=== PATIENT | male | born 2000 | race Two or more races ===

== ENCOUNTER 2024-09-21 14:22 | Emergency (ER) | payer OTHER ==
[~2024-09-21] VITALS: Ht 172.7 cm; Wt 60.3 kg
[2024-09-21 15:25] LABS: APPEARANCE,URINE CLEAR (CLEAR); BILIRUBIN,URINE NEGATIVE (NEGATIVE); BLOOD, URINE NEGATIVE Ery/uL (NEGATIVE); COLOR,URINE YELLOW (YELLOW); KETONES,URINE NEGATIVE (NEGATIVE); LEUKOCYTE ESTERASE ,URINE NEGATIVE (NEGATIVE); NITRITE, URINE NEGATIVE (NEGATIVE); PROTEIN,URINE NEGATIVE (NEGATIVE); UGLUCOSE NEGATIVE (NEGATIVE); UROBILINOGEN,URINE 0.2 EU/dL (0.2)
[2024-09-21] MEDS ORDERED: LEVO500T90 PO (15:47)
[2024-09-21] MEDS ORDERED: CEFTRIAXONE 500 MG VIAL ONE (16:05)
[2024-09-21] MEDS ORDERED: LIDOCAINE 1% INJ 50 ML MDV IJ ONE (16:06)
[2024-09-21] MEDS: CEFTRIAXONE 500 MG VIAL IM ONE (16:16)
[2024-09-21 16:20] VITALS: BP 125/82; TEMP 98.1; O2SAT 99
== END 2024-09-21 16:20 | disposition home or self-care (01) ==
LOC: ER 14:56
DX: N45.1 Epididymitis (principal); R30.0 Dysuria
CPT/HCPCS: 99284; 76870; 81003; J3490; J0696

== ENCOUNTER 2024-09-27 22:17 | Emergency (ER) | payer OTHER ==
[~2024-09-27] VITALS: Ht 175.3 cm; Wt 54.4 kg
[~2024-09-27 22:17] MED LIST: LEVO500T90 PO
[2024-09-27] MEDS ORDERED: FLUC200T8 PO (23:25)
[2024-09-28] MEDS ORDERED: KETOROLAC TROMETHAMINE INJ 30 MG/ML VIAL ONE (00:20)
[2024-09-28] MEDS: KETOROLAC TROMETHAMINE INJ 30 MG/ML VIAL IM ONE (00:31)
[2024-09-28 00:38] VITALS: BP 116/65; TEMP 99.5; O2SAT 96
== END 2024-09-28 00:44 | disposition home or self-care (01) ==
LOC: ER 22:26
DX: R07.0 Pain in throat (principal); B37.0 Candidal stomatitis
CPT/HCPCS: 99283; 87070; 87880; 96372; J1885; 86403-TC

== ENCOUNTER 2024-11-30 20:27 | Inpatient (IN) | payer OTHER ==
[~2024-11-30] VITALS: Ht 167.6 cm; Wt 58.7 kg
[~2024-11-30 20:27] MED LIST changes: +FLUC200T8 PO
[2024-11-30 22:58] LABS: PLATELET COUNT (AUTO) 514 K/uL (150-450); RED BLOOD CELL COUNT(AUTO) 3.97 MIL/uL (4.5-6.0); RED CELL DISTRIBUTION WIDTH 15.9 % (11.5-15.0); WHITE BLOOD COUNT (AUTO) 10.0 K/uL (4.3-11.0)
[2024-11-30 23:13] LABS: CALCIUM, SERUM 9.4 mg/dL (8.5-10.1); CREATININE 0.9 mg/dL (0.6-1.3); INR 1.08 (0.91-1.10); SODIUM SERUM 135.0 mmol/L (136-145); UREA NITROGEN, BLOOD 7.0 mg/dL (7-18)
[2024-12-01] MEDS ORDERED: ACETAMINOPHEN 325 MG TABLET PO PRN
[2024-12-01] MEDS: POTASSIUM CHLORIDE 20 MEQ TAB.PRT.SR PO ONE
[2024-12-01] MEDS ORDERED: ONDANSETRON HCL/PF 4 MG/2 ML VIAL IVP PRN
[2024-12-01] MEDS ORDERED: MAG HYDROX/AL HYDROX/SIMETH 30 ML UDC PO PRN
[2024-12-01] MEDS ORDERED: MAGNESIUM HYDROXIDE 30 ML UDC PO PRN
[2024-12-01] MEDS ORDERED: ENOXAPARIN SODIUM 60 MG/0.6 ML DISP.SYRIN SQ ONE (01:03)
[2024-12-01] MEDS ORDERED: POTASSIUM CHLORIDE 20 MEQ TAB.PRT.SR PO ONE (01:03)
[2024-12-01] MEDS: ENOXAPARIN SODIUM 60 MG/0.6 ML DISP.SYRIN SQ SCH (01:04)
[2024-12-01 06:04] VITALS: TEMP 98.1
[2024-12-01 06:34] LABS: PLATELET COUNT (AUTO) 526 K/uL (150-450); RED BLOOD CELL COUNT(AUTO) 3.92 MIL/uL (4.5-6.0); RED CELL DISTRIBUTION WIDTH 16.2 % (11.5-15.0); WHITE BLOOD COUNT (AUTO) 7.7 K/uL (4.3-11.0)
[2024-12-01 06:45] LABS: INR 1.13 (0.91-1.10)
[2024-12-01 07:03] LABS: ASPARTATE AMINOTRANSFERASE 10.0 U/L (15-37); CALCIUM, SERUM 9.1 mg/dL (8.5-10.1); CREATININE 0.8 mg/dL (0.6-1.3); SODIUM SERUM 141.0 mmol/L (136-145); UREA NITROGEN, BLOOD 4.0 mg/dL (7-18)
[2024-12-01 07:33] LABS: PHOSPHORUS 3.6 mg/dL (2.5-4.9); TOTAL PROTEIN, SERUM 7.4 g/dL (6.4-8.2)
[2024-12-01 08:00] VITALS: BP 108/64; O2SAT 99
[2024-12-01] MEDS ORDERED: COLC0.6C3 PO (08:19)
[2024-12-01] MEDS: RIVAROXABAN 15 MG TABLET PO SCH (09:41)
[2024-12-01] MEDS: DOCUSATE SODIUM 100 MG CAPSULE PO SCH (09:41)
[2024-12-01] MEDS: PANTOPRAZOLE 40 MG TABLET.DR PO SCH (09:41)
[2024-12-01] MEDS ORDERED: RIVA15TA PO (10:20)
[2024-12-01] MEDS ORDERED: RIVA10TA PO (10:20)
[2024-12-01] MEDS ORDERED: ENOXAPARIN SODIUM 60 MG/0.6 ML DISP.SYRIN SQ SCH (13:00)
== END 2024-12-01 11:15 | disposition home or self-care (01) | DRG 300 ==
LOC: ER 20:31 → TELE 12-01 09:00
PROVIDERS: ADMIT Nurse Practitioner Family; ATTEND Nurse Practitioner Acute Care
DX: I82.411 Acute embolism and thrombosis of right femoral vein (principal); E87.1 Hypo-osmolality and hyponatremia; M35.2 Behcet's disease; D63.8 Anemia in other chronic diseases classified elsewhere; D75.839 Thrombocytosis, unspecified; E87.6 Hypokalemia
CPT/HCPCS: 36415; 80048-TC; 80076-TC; 83735-TC; 84100-TC; 85025-TC; 85610-TC; 85730-TC; 87081-TC; 93971-TC; G0378; J1650